=== PATIENT | female | born 1990 | race African-American/Black ===

== ENCOUNTER 2022-01-20 15:36 | Outpatient (CLI) | payer MEDICAID, SELFPAY ==
[2022-01-20 21:52] LABS: Chlamydia DNA Amplified* NOT DETECTED (No Detected); GC DNA Amplified* NOT DETECTED (No Detected)
== END 2022-01-20 15:37 | disposition home or self-care (01) ==
PROVIDERS: Visit Provider Registered Nurse
DX: R30.0 Dysuria (principal); Z11.3 Encounter for screening for infections with a predominantly sexual mode of transmission
CPT/HCPCS: 87086; 87491; 87591